=== PATIENT | female | born 1995 | race Caucasian/White ===

== ENCOUNTER 2020-01-24 06:43 | Emergency (ER) | payer BC ==
[2020-01-24 07:12] VITALS: BP 138/79; PULSE 95; TEMP 98.5; BMI 27.7
[2020-01-24] MEDS ORDERED: DIPHTH,PERTUSS(ACELL),TET 0.5 ML DISP.SYRIN IM ONE ×2 (07:32→07:37)
== END 2020-01-24 08:00 | disposition home or self-care (01) ==
LOC: JER 06:43
PROC: 0HQGXZZ Repair Left Hand Skin, External Approach (ICD-10-PCS; principal; 2020-01-24)
PROC: 3E0234Z Introduction of Serum, Toxoid and Vaccine into Muscle, Percutaneous Approach (ICD-10-PCS; 2020-01-24)
DX: S61.213A Laceration without foreign body of left middle finger without damage to nail, initial encounter (principal); S61.211A Laceration without foreign body of left index finger without damage to nail, initial encounter
CPT/HCPCS: 90715; 99285-25

== ENCOUNTER 2020-01-31 08:59 | Emergency (ER) | payer BC ==
[2020-01-31 09:07] VITALS: BP 129/79; PULSE 66; TEMP 98.3; BMI 27.6
== END 2020-01-31 09:31 | disposition home or self-care (01) ==
LOC: JER 08:59
DX: S61.212A Laceration without foreign body of right middle finger without damage to nail, initial encounter (principal); Z48.02 Encounter for removal of sutures
CPT/HCPCS: 99281-25